=== PATIENT | female | born 1950 | race African-American/Black ===

== ENCOUNTER 2022-05-25 12:20 | Emergency (ER) | payer OTHER ==
[~2022-05-25] VITALS: Ht 162.6 cm; Wt 45.0 kg
[2022-05-25] MEDS ORDERED: SODIUM CHLORIDE 0.9% 1,000 ML IV ONE (12:30)
[2022-05-25 13:17] LABS: BASOPHILS % 0.2 % (0.0-2.0); EOSINOPHILS % 0.1 % (0.0-5.0); HEMATOCRIT. 35.8 % (36.0-48.0); LYMPHOCYTES % 16.3 % (20.0-50.0); MEAN CORPUSCULAR HEMOGLOBIN 30.2 pg (28.0-32.0); MEAN CORPUSCULAR VOLUME 90.5 fL (81.0-99.0); MONOCYTES % 8.4 % (2.0-8.0); PLATELET 235 x1000/uL (130-400); RED BLOOD CELL COUNT 3.96 mill/uL (4.2-5.4); RED CELL DISTRIBUTION WIDTH 20.6 % (11.6-14.6)
[2022-05-25 13:26] LABS: CHLORIDE 100 mEq/L (98-107)
[2022-05-25] MEDS ORDERED: SODIUM CHLORIDE 0.9% 1000ML BAG (SEPSIS BOLUS) IV ONE (13:45)
[2022-05-25] MEDS ORDERED: PIPERACILLIN/TAZ 3.375G PREMIX 50 ML IV ONE (13:45)
[2022-05-25] MEDS ORDERED: VANCOMYCIN 1G PREMIX 200 ML IV ONE (13:45)
[2022-05-25 16:38] LABS: CLARITY URINE CLEAR (CLEAR); COLOR URINE DARK YELLOW (YELLOW); KETONES URINE 1+ (NEGATIVE); LEUKOCYTE ESTERASE URINE 3+ (NEGATIVE); NITRITE URINE NEGATIVE (NEGATIVE); OCCULT BLOOD URINE NEGATIVE (NEGATIVE); PH URINE 6.5 (4.5-8.0); PROTEIN URINE TRACE (NEGATIVE); SPECIFIC GRAVITY URINE 1.018 (1.005-1.030)
[2022-05-25 21:30] VITALS: BP 138/70
== END 2022-05-25 23:56 | disposition short-term general hospital (02) ==
LOC: ER 12:20 → CANBEDREQ 05-26 00:07
DX: A41.9 Sepsis, unspecified organism (principal); R65.20 Severe sepsis without septic shock; N39.0 Urinary tract infection, site not specified; C50.919 Malignant neoplasm of unspecified site of unspecified female breast; C79.89 Secondary malignant neoplasm of other specified sites; R62.7 Adult failure to thrive; K85.90 Acute pancreatitis without necrosis or infection, unspecified; R55 Syncope and collapse; E78.00 Pure hypercholesterolemia, unspecified; I10 Essential (primary) hypertension; Z20.822 Contact with and (suspected) exposure to COVID-19; Z68.1 Body mass index [BMI] 19.9 or less, adult; Z60.2 Problems related to living alone; Z92.21 Personal history of antineoplastic chemotherapy
CPT/HCPCS: 36415; 70450; 71045; 76705; 80053; 81003; 83605; 83690; 83880; 84484; 85025; 85610; 86850; 86900; 86901; 87040; 87086; 87426; 93005; 96361; 96365; 96367; 99291; J2543; J3370; J7030; 84145